=== PATIENT | female | born 1965 | race Caucasian/White ===

== ENCOUNTER 2017-01-29 22:05 | Emergency (ER) | payer BC, OTHER ==
--- NOTE | 2017-01-30 01:22 | ED ---
Throat Pain/Nasal Congestion - HPI Summary HPI Summary: 51 female presents with complaints of bleeding at the site of her tooth extraction that occurred today around 11:00am. It has been continuously oozing. Patient has been applying pressure to the area with gauze pads. Denies anticoagulation and NSAIDs. Denies pain, difficulty swallowing, difficulty breathing, dizziness and lightheadedness. Patient denies any medical problems. No other complaints at this time. - History of Current Complaint Chief Complaint: EDDentalPain Time Seen by Provider: 01/30/17 00:35 Hx Obtained From: Patient, Family/Lacing Presser Onset/Duration: Sudden Onset, Lasting Hours, Still Present Severity: Mild - Allergies/Home Medications Allergies/Adverse Reactions: Allergies Allergy/AdvReac Type Severity Reaction Status Date / Time No Known Allergies Allergy Verified 01/29/17 22:32 PMH/Surg Hx/FS Hx/Imm Hx Endocrine/Hematology History: Denies: Hx Diabetes Cardiovascular History: Denies: Hx Hypertension Respiratory History: Denies: Hx Asthma - Surgical History Surgery Procedure, Year, and Place: n/a - Immunization History Immunizations Up to Date: Yes Infectious Disease History: Denies: Traveled Outside the [place] in Last 30 Days - Family History Known Family History: Positive: None - Social History Alcohol Use: None Substance Use Type: Reports: None Smoking Status (MU): Never Smoked Tobacco Review of Systems Constitutional: Negative Positive: Dental Pain - bleeding after extraction Cardiovascular: Negative Respiratory: Negative Skin: Negative Neurological: Negative All Other Systems Reviewed And Are Negative: Yes Physical Exam Triage Information Reviewed: Yes Vital Signs On Initial Exam: Initial Vitals Temp Pulse Resp BP Pulse Ox 96.5 F 122 16 141/82 99 01/29/17 22:25 01/29/17 22:25 01/29/17 22:25 01/29/17 22:25 01/29/17 22:25 tachycardia and bp noted. improved at discharge. Vital Signs Reviewed: Yes Appearance: Positive: Well-Appearing, No Pain Distress, Well-Nourished Skin: Positive: Warm, Skin Color Reflects Adequate Perfusion, Dry Head/Face: Positive: Normal Head/Face Inspection Eyes: Positive: Normal, Conjunctiva Clear ENT: Positive: Hearing grossly normal, Pharynx normal, TMs normal, Other - airway patent. Negative: Trismus, Muffled/hoarse voice Dental: Positive: Bleeding - at tooth #7 upper front after tooth extracton that occurred this morning at dentist offaice around 1130am. Oozing. without pain. no signs of infection Neck: Positive: Supple, Nontender Respiratory/Lung Sounds: Positive: Clear to Auscultation, Breath Sounds Present. Negative: Rales, Rhonchi Cardiovascular: Positive: Normal, RRR, Pulses are Symmetrical in both Upper and Lower Extremities. Negative: Murmur, Rub Musculoskeletal: Positive: Normal Neurological: Positive: Normal Psychiatric: Positive: Affect/Mood Appropriate AVPU Assessment: Alert Diagnostics - Vital Signs Vital Signs Temp Pulse Resp BP Pulse Ox 01/29/17 22:25 96.5 F 122 16 141/82 99 - Laboratory Lab Statement: Any lab studies that have been ordered have been reviewed, and results considered in the medical decision making process. EENT Course/Dx - Course Course Of Treatment: surgicel applied to extracted tooth area without complication. Told to continue using a tea bag or 4x4 with pressure to help stop bleeding. Call oral surgeon in the morning, especially if bleeding persists. Aware of worsening signs and symptoms. Not on anticoagulants. Aware of medications to stay away from. Follow up. - Differential Diagnoses Differential Diagnoses: Dental Abscess, Dental Caries, Fractured Tooth, Other - post surgical complication, dental bleeding - Diagnoses Provider Diagnoses: Post surgical complication, Gums, bleeding Discharge - Discharge Plan Condition: Stable Disposition: HOME Referrals: Karley Schroeder MD [Primary Care Provider] - Additional Instructions: Apply firm pressure with tea bag or 4x4 gauze pads. Call and follow up with oral surgeon/dentist tomorrow morning. Do not take medications such as ibuprofen, (advil, motrin) aleve, or aspirin. If symptoms do not improve or new symptoms appear such as lightheadedness, fainting or feeling dizzy please return to ED immediately.
[2017-01-30 01:52] VITALS: BP 123/84
== END 2017-01-30 01:45 | disposition home or self-care (01) ==
LOC: ED 22:05
DX: K91.840 Postprocedural hemorrhage of a digestive system organ or structure following a digestive system procedure (principal); K08.89 Other specified disorders of teeth and supporting structures
CPT/HCPCS: 99281